=== PATIENT | female | born 1965 | race Caucasian/White ===

== ENCOUNTER 2019-10-17 21:10 | Inpatient (IN) | payer MEDICAID ==
[~2019-10-17] VITALS: Ht 167.6 cm; Wt 163.7 kg
--- NOTE | 2019-10-17 21:10 | NUR ---
BIB EMS C/O EPIGASTRIC PAIN WITH N/V SINCE 1599, pt awake, alert, -sob, nad noted, vss, pending md jiménez
[2019-10-17] MEDS ORDERED: ONDANSETRON HCL/PF 4 MG/2 ML VIAL ONE (21:44)
[2019-10-17] MEDS ORDERED: MORPHINE SULFATE INJ 4 MG/ML DISP.SYRIN ONE (21:44)
[2019-10-17] MEDS ORDERED: MORPHINE SULFATE INJ 2 MG/ML DISP.SYRIN ONE (21:44)
[2019-10-17] MEDS ORDERED: FAMOTIDINE/PF INJ 20 MG/2 ML VIAL IV ONE ×2 (21:44→22:00)
[2019-10-17 21:45] LABS: BASOPHILS # (AUTO) 0.1 /CMM (0.0-0.2); BASOPHILS % (AUTO) 0.9 % (0.0-2.0); EOSINOPHILS % (AUTO) 1.1 % (0.0-6.0); HEMATOCRIT 43 % (33-45); HEMOGLOBIN 14.3 g/dL (11.5-14.8); LYMPHOCYTES # (AUTO) 1.4 /CMM (0.8-4.8); LYMPHOCYTES % (AUTO) 11.5 % (20.0-44.0); MEAN CORPUSCULAR HGB CONC 33 g/dl (31.0-36.0); MEAN CORPUSCULAR VOLUME 91 fL (82-100); MONOCYTES # (AUTO) 0.6 /CMM (0.1-1.30); MONOCYTES % (AUTO) 4.5 % (2.0-12.0); NEUTROPHILS # (AUTO) 10.4 /CMM (1.8-8.9); PLATELET COUNT (AUTO) 348 /CMM (150-450); RED BLOOD CELL COUNT(AUTO) 4.78 MIL/uL (4.0-5.2); WHITE BLOOD COUNT (AUTO) 12.6 K/uL (4.3-11.0)
[2019-10-17 21:55] LABS: CALCIUM, SERUM 9.6 mg/dL (8.5-10.1); CREATININE 1.1 mg/dL (0.6-1.3); POTASSIUM 3.9 mmol/L (3.5-5.1)
[2019-10-17 22:00] LABS: ALBUMIN 3.8 g/dL (3.4-5.0); BILIRUBIN,DIRECT 0.2 mg/dL (0.0-0.2); BILIRUBIN,TOTAL 0.9 mg/dL (0.2-1.0); TOTAL PROTEIN, SERUM 7.8 g/dL (6.4-8.2)
[2019-10-17] MEDS ORDERED: IV NS 0.9% 1,000 ML BAG IV ONE (22:00)
[2019-10-17] MEDS ORDERED: MORPHINE SULFATE INJ 2 MG/ML DISP.SYRIN IV ONE (22:00)
[2019-10-17] MEDS ORDERED: ONDANSETRON HCL/PF 4 MG/2 ML VIAL IVP ONE (22:00)
--- NOTE | 2019-10-17 22:05 | NUR ---
pt unable to give urine sample at this time
[2019-10-17] MEDS ORDERED: IOHEXOL-300 100 ML VIAL IV ONE (23:34)
[2019-10-17] MEDS ORDERED: CT SWABBABLE VALVE TRANS SET 1 EA INFUS.SET MC ONE (23:34)
[2019-10-17] MEDS ORDERED: IV NS 0.9% 250 ML IV ONE (23:35)
--- NOTE | 2019-10-18 01:00 | NUR ---
ngt inserted for gastric decompression; tolerated procedure well, no sob, -n/v, per dr. dunn, xray ordered to confirm placement
[2019-10-18] MEDS ORDERED: ONDANSETRON HCL/PF 4 MG/2 ML VIAL IVP PRN (01:30)
[2019-10-18] MEDS ORDERED: MAG HYDROX/AL HYDROX/SIMETH 30 ML UDC PO PRN (01:30)
[2019-10-18] MEDS ORDERED: MORPHINE SULFATE INJ 2 MG/ML DISP.SYRIN IV PRN (01:30)
[2019-10-18] MEDS ORDERED: HYDROCODONE/APAP 5/325MG 1 EACH TABLET PO PRN (01:30)
[2019-10-18] MEDS ORDERED: ZOLPIDEM TARTRATE 5 MG TABLET PO PRN (01:30)
[2019-10-18] MEDS ORDERED: Z GUARD REMEDY 2 OZ OINT TP PRN (01:30)
[2019-10-18] MEDS ORDERED: ACETAMINOPHEN 325 MG TABLET PO PRN (01:30)
[2019-10-18] MEDS ORDERED: MAGNESIUM HYDROXIDE 30 ML UDC PO PRN (01:30)
[2019-10-18] MEDS ORDERED: AMLO1CAP19 PO (01:41)
[2019-10-18 02:00] VITALS: BP_SYST 144; BP_DIAS 76; BP_DIAS 96
--- NOTE | 2019-10-18 02:00 | NUR ---
MS RN NOTES PATIENT ARRIVED TO THE UNIT VIA HOSPITAL PROTOCOLS. PATIENT PATIENT ALERT AND ORIENTED X 4. PATIENT ON ROOM AIR, NO SIGNS OF RESPIRATORY DISTRESS, NO SIGNS OF SOB PRESENT, WITH EVEN NON-LABORED BREATHING. PATIENT IV ACCESS INTACT AND PATENT, ON RIGHT HAND, 20 GAUGE. PATIENT CAME IN WITH NASOGASTRIC TUBE, PLACED IN ER, IN PLACE AND INTACT. PROVIDED COMFORT MEASURES TO PATIENT. SAFETY PRECAUTIONS IN PLACE WITH BED IN THE LOWEST POSITION, BILATERAL SIDE RAILS UP, BED LOCKED, AND CALL LIGHT WITHIN EASY REACH, WILL CONTINUE TO MONITOR PATIENT.
--- NOTE | 2019-10-18 02:06 | NUR ---
report given to justin dong for otto pt will be transported to 3rd floor
--- NOTE | 2019-10-18 02:30 | NUR ---
MS RN NOTES PATIENT NASOGASTRIC TUBE, CAME OUT WHILE PATIENT WAS USING THE BSC. PATIENT STATES NO PAIN OR DISCOMFORT AT THIS TIME. AURA SEGURA, PLACED AND INSERTED NEW NASOGASTRIC TUBE. WAITING FOR CONFIRMATION OF CHEST XR. WILL CONTINUE TO MONITOR PATIENT.
[2019-10-18] MEDS: IV D5/0.45 NACL 1,000 ML IV PRN ×2 (03:27→17:37)
[2019-10-18 04:53] LABS: APPEARANCE,URINE SL CLOUDY (CLEAR); BILIRUBIN,URINE NEGATIVE (NEGATIVE); BLOOD, URINE NEGATIVE Ery/uL (NEGATIVE); COLOR,URINE YELLOW (YELLOW); KETONES,URINE TRACE (NEGATIVE); LEUKOCYTE ESTERASE ,URINE NEGATIVE (NEGATIVE); NITRITE, URINE NEGATIVE (NEGATIVE); PROTEIN,URINE NEGATIVE (NEGATIVE); UGLUCOSE NEGATIVE (NEGATIVE); UROBILINOGEN,URINE 0.2 EU/dL (0.2)
[2019-10-18 04:56] LABS: RBC,URINE 0-2 /HPF (0-2); WBC,URINE 0-2 /HPF (0-3)
[2019-10-18 04:57] LABS: BACTERIA,URINE None seen /HPF (None Seen); SQUAMOUS EPITHELIAL CELL,UR Moderate /HPF (None Seen)
--- NOTE | 2019-10-18 06:23 | NUR ---
MS RN NOTES PATIENT IN BED SLEEPING, EASILY AWAKEN BY NAME. ALERT AND ORIENTED X 4. PATIENT ON ROOM AIR WITH NO SIGNS OF RESPIRATORY DISTRESS PRESENT, NO SIGNS OF SOB, AND EVEN NON-LABORED BREATHING. PATIENT NASOGASTRIC TUBE IN PLACE AND ON INTERMITTENT SUCTION. IV ACCESS IN PLACE ON RIGHT HAND 20 GAUGE RUNNING 75 ml/hr d5 1/2 NS. MET ALL PATIENT'S NEEDS. SAFETY PRECAUTIONS IN PLACE WITH BED IN THE LOWEST POSITION, BILATERAL SIDE RAILS UP, BED LOCKED, AND CALL LIGHT WITHIN EASY REACH, WILL ENDORSE KIMBERLYN TO UPCOMING DAYSHIFT NURSE.
--- NOTE | 2019-10-18 07:39 | NUR ---
rn opening notes Patient received on room air, no sob noted, patient states that she is in some pain but refuses morphine because it is too strong. NPO at this time with NG tube inserted. CXR confirms placement. On intermittent suctioning. R hand 20, with D5 1.2 NS running at 75 ml per hour. Bed at the lowest setting, call light within reach, side rails up x2.
[2019-10-18 08:00] VITALS: BP 156/86
[2019-10-18 16:00] VITALS: BP 129/76
--- NOTE | 2019-10-18 18:19 | NUR ---
rn ms closing notes Patient remains on room air, no sob noted, a/o x4 at this time. Patient denies pain at this time. Refused skin assessment earlier. Remains NPO. R hand 20 with d5 1/2 NS at this time. Gastro enterology consult pending, repeat x ray tomorrow morning. Bed at the lowest setting, call light within reach, side rails up x2. Will give report to NOC RN for KIMBERLYN bedside.
--- NOTE | 2019-10-18 19:10 | NUR ---
RN MS OPENING NOTES RECEIVED PATIENT IN BED AWAKE ALERT AND ORIENTED X4, RESPIRATIONS EVEN AND UNLABORED WITH EQUAL RISE AND FALL OF CHEST, DENIES ANY PAIN OR DISCOMFORT AT THIS TIME, NGT TO LEFT NARE INTACT WITH INTERMITTENT SUCTION. PROPERLY WORKING. IV SITE TO RIGHT HAND #20G INTACT AND PATENT, NO REDNESS, NO INFILTRATION PRESENT, IVF RUNNING ORDERED, ALL NEEDS ATTENDED AT THIS TIME, REMAINS NPO STATUS VERBALIZES SHE UNDERSTANDS, PENDING GI CONSULT,BSC WITHIN REACH, ALL NEEDS ATTENDED AT THIS TIME, WILL CONTINUE TO MONITOR AND ATTEND TO NEEDS.
[2019-10-18 20:00] VITALS: BP 140/93
[2019-10-18 20:47] VITALS: BP 140/93
--- NOTE | 2019-10-19 06:32 | NUR ---
RN MS CLOSING NOTES PATIENT IN BED AWAKE ALERT AND ORIENTED X4, RESPIRATIONS EVEN AND UNLABORED WITH EQUAL RISE AND FALL OF CHEST, DENIES ANY PAIN OR DISCOMFORT AT THIS TIME, NGT TO LEFT NARES INTACT WITH INTERMITTENT SUCTION. NOTED 250 OUTPUT YELLOW/LIGHT BROWN COLOR, NO NAUSEA NO VOMITING PRESENT. PROPERLY WORKING. IV SITE TO RIGHT HAND #20G INTACT AND PATENT, NO REDNESS, NO INFILTRATION PRESENT, IVF RUNNING ORDERED, ALL NEEDS ATTENDED AT THIS TIME, REMAINS NPO STATUS VERBALIZES SHE UNDERSTANDS, SEEN BY Cristino NARVAEZ TO FOLLOW WITH XR SMALL BOWEL FOLLOW THROUGH THIS AM,BSC WITHIN REACH, ALL NEEDS ATTENDED AT THIS TIME, WILL CONTINUE TO MONITOR AND ATTEND TO NEEDS. PATIENT WAS ABLE TO TOLERATING WALKING AROUND UNIT 4 TIMES.
[2019-10-19 06:51] LABS: BASOPHILS % (AUTO) 0.4 % (0.0-2.0); EOSINOPHILS % (AUTO) 2.9 % (0.0-6.0); HEMATOCRIT 39 % (33-45); HEMOGLOBIN 13.1 g/dL (11.5-14.8); LYMPHOCYTES # (AUTO) 1.5 /CMM (0.8-4.8); MEAN CORPUSCULAR HGB CONC 33 g/dl (31.0-36.0); MEAN CORPUSCULAR VOLUME 91 fL (82-100); MONOCYTES # (AUTO) 0.6 /CMM (0.1-1.30); MONOCYTES % (AUTO) 9.1 % (2.0-12.0); NEUTROPHILS # (AUTO) 4.1 /CMM (1.8-8.9); NEUTROPHILS % (AUTO) 64.6 % (43.0-81.0); PLATELET COUNT (AUTO) 297 /CMM (150-450); RED BLOOD CELL COUNT(AUTO) 4.34 MIL/uL (4.0-5.2); WHITE BLOOD COUNT (AUTO) 6.3 K/uL (4.3-11.0)
[2019-10-19 07:26] LABS: CALCIUM, SERUM 8.6 mg/dL (8.5-10.1); CREATININE 0.9 mg/dL (0.6-1.3); MAGNESIUM 2.2 mg/dL (1.8-2.4); PHOSPHORUS 2.6 mg/dL (2.5-4.9); POTASSIUM 3.6 mmol/L (3.5-5.1)
--- NOTE | 2019-10-19 08:00 | NUR ---
RN/MS OPENING NOTES RECEIVED PATIENT IN BED AWAKE ALERT AND ORIENTED X4, RESPIRATIONS EVEN AND UNLABORED WITH EQUAL RISE AND FALL OF CHEST, DENIES ANY PAIN OR DISCOMFORT AT THIS TIME, NGT TO LEFT NARES INTACT WITH INTERMITTENT SUCTION. NO NAUSEA NO VOMITING PRESENT. PROPERLY WORKING. IV SITE TO RIGHT HAND #20G INTACT AND PATENT, NO REDNESS, NO INFILTRATION PRESENT, IVF RUNNING ORDERED, WILL CONTINUE TO MONITOR
[2019-10-19 09:07] VITALS: BP 135/99
[2019-10-19] MEDS ORDERED: DIATR MEGLU/DIATRIZOATE SODIUM 120 ML BOTTLE (GASTROGRAPHIN) ONE (09:19)
[2019-10-19] MEDS: IV D5/0.45 NACL 1,000 ML IV PRN (11:48)
[2019-10-19 15:46] VITALS: BP_SYST 135; BP_SYST 139; BP_DIAS 92; BP_DIAS 99
--- NOTE | 2019-10-19 16:52 | NUR ---
MS/RN NOTES NG TUBE REMOVED PER DR. TOPETE.
--- NOTE | 2019-10-19 18:25 | NUR ---
MS/RN NOTES MEDICATION RECONCILIATION MD IS AWARE
--- NOTE | 2019-10-19 19:00 | NUR ---
RN MS OPENING NOTES PATIENT IN BED AWAKE ALERT AND ORIENTED X4, RESPIRATIONS EVEN AND UNLABORED WITH EQUAL RISE AND FALL OF CHEST, DENIES ANY PAIN OR DISCOMFORT AT THIS TIME, IV SITE TO RIGHT HAND #20G INTACT AND PATENT, NO REDNESS, NO INFILTRATION PRESENT, IVF RUNNING ORDERED, ALL NEEDS ATTENDED AT THIS TIME, WILL CONTINUE TO MONITOR AND ATTEND TO NEEDS CALL LIGHT KEPT WITHIN REACH. PER DR RICARDO COUGHLIN PATIENT IS SCHEDULED FOR DISCHARGE TONIGHT , PATIENT AWARE AND AGREED WITH PLAN, PATIENT TOLERATED LIQUIDS WELL TODAY NO N/V MD AWARE. FRIEND WILL PICK PATIENT UP AND PER PATIENT WILL TAKE UBER.
--- NOTE | 2019-10-19 19:12 | NUR ---
MS/RN CLOSING NOTES PATIENT IS LYING ON BED COMFORTABLY. DENIES PAIN AT THIS TIME. NO RESPIRATORY DISTRESS NOTED. SEEN AND EXAMINED BY MD WITH ORDERS MADE AND CARRIED OUT. ALL DUE MEDS WAS GIVEN. KEPT PATIENT CLEAN AND DRY THE WHOLE TIME. ALL NEEDS WAS ATTENDED. SAFETY PRECAUTION WAS IN PLACED. BED IN LOWEST POSITION. SIDE RAILS UP X2. CALL LIGHT WITH IN REACH. WILL ENDORSED TO EDUCATION ASSOCIATE FOR KIMBERLYN.
[2019-10-19 20:00] VITALS: BP 135/94
--- NOTE | 2019-10-19 20:40 | NUR ---
INVASIVE CARDIOLOGIST NOTES MD ORDERS FOLLOWED FOR DISCHARGE, DISCHARGE INSTRUCTIONS REVIEWED WITH PATIENT, VERBALIZES SHE UNDERSTANDS AT THIS TIME IS STABLE, FLU AND PNA VACCINE PREFERS TO RECEIVE ELSEWHERE WOULD LIKE TO TALK TO PCP AND FOLLOW UP ELSEWHERE , BELONGINGS LIST DONE ALL BELONGINGS WITH PATIENT. PERSONAL MEDICATION RETURN TO PATIENT, ID BAND REMOVED , IV SITE REMOVED, NO REDNESS, NO INFILTRATION, PATIEN FRIEND " MAGALI" HERE TO ACCOMPANY PATIENT STABLE LEFT WHEELED PATIENT OUT SAFELY FOR DISCHARGE PER PATIENT CALLED UBER WITH FRIEND AT BEDSIDE. ALL NEEDS WHERE ATTENDED , EXIT CARE PROVIDED.
== END 2019-10-19 20:40 | disposition home or self-care (01) | DRG 247 ==
LOC: ER 21:14 → MED 10-18 01:35
PROVIDERS: ADMIT Nurse Practitioner Acute Care; ATTEND Internal Medicine
DX: K56.609 Unspecified intestinal obstruction, unspecified as to partial versus complete obstruction (principal); E66.01 Morbid (severe) obesity due to excess calories; I10 Essential (primary) hypertension; J45.909 Unspecified asthma, uncomplicated; D72.829 Elevated white blood cell count, unspecified; Z68.43 Body mass index [BMI] 50.0-59.9, adult; K27.9 Peptic ulcer, site unspecified, unspecified as acute or chronic, without hemorrhage or perforation; Z71.3 Dietary counseling and surveillance
CPT/HCPCS: 36415; 71045-TC; 74250-TC; 76705-TC; 80048-TC; 80061-TC; 80076-TC; 81000-TC; 83690-TC; 83735-TC; 84100-TC; 84484-TC; 85025-TC; 87081-TC; G0378; J2270; J2405; J3490; J7030; J7050; Q9963; Q9967